=== PATIENT | female | born 1990 | race Caucasian/White ===

== ENCOUNTER 2019-04-15 11:39 | Emergency (ER) | payer MEDICAID ==
[~2019-04-15] VITALS: Ht 157.5 cm; Wt 75.5 kg
[2019-04-15 11:44] VITALS: Ht 157.5 cm; Wt 75.5 kg
[2019-04-15] MEDS ORDERED: SEROQUEL200 MG PO (11:45)
[2019-04-15] MEDS ORDERED: NAPROSYN500 MG PO (13:10)
[2019-04-15 14:20] VITALS: BP 124/80
== END 2019-04-15 14:06 | disposition home or self-care (01) ==
LOC: D.ER 11:39
DX: S76.912A Strain of unspecified muscles, fascia and tendons at thigh level, left thigh, initial encounter (principal)